=== PATIENT | female | born 1960 | race Caucasian/White ===

== ENCOUNTER 2016-10-28 16:20 | Emergency (ER) | payer OTHER ==
[~2016-10-28] VITALS: Ht 160 cm; Wt 90.2 kg
[~2016-10-28 16:20] MED LIST: BUSPIRONE HCL15 MG PO; CLARITIN10 M3 PO; DIAZEPAM10 MG PO; EXTRA STRENGTH500 M1 PO; GABAPENTIN300 MG PO; GUAIFENESIN400 MG PO; HYDROCHLOROTH12.5 M3 PO; IBUPROFEN200 M1 PO; LYRICA75 MG PO; MOBIC15 MG PO; NITROFURANTOIN50 MG PO; OMEPRAZOLE40 M1 PO; PRINIVIL20 MG PO; TECFIDERA240 MG PO; TRAMADOL HCL50 MG PO
[2016-10-28 19:00] LABS: HEMATOCRIT 29.7 % (36.0-46.0); MCH 28.8 PG (29.0-34.0); MCV 84.6 FL (83-99); MEAN PLAT.VOLUME 9.3 uM^3 (9.5-12.4); NRBC (%) 0.2 /100 WBC (0-0); PLATELET COUNT 240 K/uL (156-360); RBC DIS.WIDTH-CV 12.8 % (11.8-14.6); RBC DIS.WIDTH-SD 38.8 % (39-53); RED BLOOD COUNT 3.51 M/uL (3.80-5.20); WHITE BLOOD COUNT 10.2 K/uL (4.1-10.2)
[2016-10-28 19:07] LABS: CHLORIDE 100 mEq/L (99-109)
[2016-10-28 19:08] LABS: POTASSIUM 4.5 mEq/L (3.7-5.4); SODIUM 133 mEq/L (136-147)
[2016-10-28 19:09] LABS: GLUCOSE 92 mg/dL (70-99)
[2016-10-28 19:11] LABS: ANION GAP 10 MEQ/L (2-14)
[2016-10-28 19:13] LABS: GFR ESTIMATE (CALCULATED) 50 mL/min/
[2016-10-28 19:14] LABS: UREA NITROGEN (BUN) 19 mg/dL (9-23)
[2016-10-28 19:16] LABS: CREATINE KINASE 66 IU/L (1-294)
[2016-10-28 19:55] VITALS: BP 113/76
== END 2016-10-28 20:20 | disposition home or self-care (01) ==
LOC: EME 16:20
PROVIDERS: Physician Assistant
DX: R25.2 Cramp and spasm (principal); R60.0 Localized edema; G35 Multiple sclerosis
CPT/HCPCS: 80048; 82550; 85027; 93971; 99281; 99284